=== PATIENT | female | born 1960 | race Asian ===

== ENCOUNTER 2021-05-19 11:41 | Emergency (ER) | payer OTHER ==
[~2021-05-19] VITALS: Ht 152.4 cm; Wt 69.1 kg
[2021-05-19] MEDS ORDERED: IV NORMAL SALINE 1000ML BAG 1,000 ML IV SCH (12:00)
[2021-05-19] MEDS ORDERED: IV NORMAL SALINE 1000ML BAG 1,000 ML IV ONE (12:15)
--- NOTE | 2021-05-19 12:18 | RAD ---
EXAM: Chest, single view. HISTORY: Chest pain. COMPARISON: None. FINDINGS: A frontal view of the chest is obtained. There is no infiltrate, pleural effusion or pneumo thorax. The heart is normal in size. IMPRESSION: No acute pulmonary finding. Electronically signed by: Rosita Farnsworth MD (05/19/2021 12:15 PM) [id number]
[2021-05-19 12:20] LABS: BARBITURATES NEG (NEG); BENZODIAZEPINES NEG (NEG); CANNABINOIDS NEG (NEG); COCAINE NEG (NEG); METHADONE NEG (NEG); OPIATES NEG (NEG); PHENCYCLIDINE NEG (NEG)
[2021-05-19 12:24] LABS: AMPHETAMINE/METHAMPHETAMINE NEG (NEG)
[2021-05-19 12:39] LABS: BASO % 0 % (0-3); EOS # 0.1 x10^3/uL (0.0-0.7); EOS % 1 % (0-3); HEMATOCRIT 41.2 % (36.0-47.0); LYMPH # 1.7 x10^3/uL (1.0-4.8); LYMPH % 23 % (24-48); MEAN CORPUSCULAR HEMOGLOBIN 30 pg (25-35); MEAN CORPUSCULAR HGB CONC 34 g/dL (31-37); MEAN CORPUSCULAR VOLUME 87 fL (79-100); MONO # 0.4 x10^3/uL (0.0-1.1); MONO % 5 % (0-9); NEUT # 5.5 x10^3/uL (1.8-7.7); NEUT % 71 % (31-73); PLATELET COUNT 290 x10^3/uL (140-400); RED BLOOD COUNT 4.73 x10^6/uL (3.50-5.40); RED CELL DISTRIBUTION WIDTH 13.1 % (11.5-14.5); WHITE BLOOD COUNT 7.7 x10^3/uL (4.0-11.0)
[2021-05-19 13:04] LABS: ALBUMIN 3.9 g/dL (3.4-5.0); ALBUMIN/GLOBULIN RATIO 1.1 (1.0-1.7); CREATININE 0.7 mg/dL (0.6-1.0); GFR 85.9; MAGNESIUM 2.1 mg/dL (1.8-2.4); TOTAL BILIRUBIN 0.4 mg/dL (0.2-1.0); TOTAL PROTEIN 7.6 g/dL (6.4-8.2)
--- NOTE | 2021-05-19 14:28 | RAD ---
PQRS Compliance Statement: One or more of the following individualized dose reduction techniques were utilized for this examinat ion: 1. Automated exposure control 2. Adjustment of the mA and/or kV according to patient size 3. Use of iterative reconstruction technique CT CERVICAL SPINE WO 05/19/2021 1:47 PM Indication: Left upper extremity paresthesias COMPARISON: None available. TECHNIQUE: Multiple axial CT images of the cervical spine were obtained without intravenous contrast. Coronal and sagittal reformats are provided. FINDINGS: There is reversal the normal cervical lordosis centered at C6-C7. Mild disc height loss at C5-C6 and C6-C7. Vertebral body heights are maintained. No acute fracture identified. C1 and C2 arches are inta ct. Atlantoaxial articulation is intact. Craniocervical junction is normal. Sagittal alignment is oth erwise intact. At C5-C6, there is a posterior disc osteophyte complex asymmetric to the left. Mild facet arthropathy . Moderate left and moderate uncovertebral joint disease. Moderate left and mild right neuroforaminal stenosis. Mild osseous spinal canal stenosis. At C6-C7, there is a posterior disc osteophyte complex. Mild facet arthropathy. Moderate severe left and moderate right uncovertebral joint disease. Moderate left and mild right neuroforaminal stenosis. No significant spinal canal stenosis. There is no prevertebral edema. No paraspinal soft tissue abnormality. Tonsilloliths are identified b ilaterally. Thyroid gland is normal in appearance. No suspicious pulmonary abnormality. IMPRESSION: Mild cervical spondylosis without acute fracture is detailed above. Electronically signed by: Rere Shin MD (05/19/2021 2:25 PM) [id number]
--- NOTE | 2021-05-19 15:26 | EKG ---
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
--- NOTE | 2021-05-19 15:31 | PHYS DOC ---
Past Medical History Additional Past Medical Histor: Seasonal allergies Past Surgical History: Other Additional Past Surgical Histo: Carpal tunnel bilaterally, trigger finger, and L ear drum repair Smoking Status: Never Smoker Alcohol Use: None General Adult EDM: Chief Complaint: MULTIPLE COMPLAINTS HPI: HPI: 58-year-old female past medical history of asthma, diabetes, and hyperlipidemia, presents to the ED with her , (patient consents to his/her/their knowledge and involvement in pts' medical care), bibems sent in from [facility], complaints of left hand tingling "all 5 fingers" and numbness from the left shoulder down that started around midnight last night. Patient states she was restless and did not get good sleep. Around 9:30 in the morning had associated lightheadedness, dizziness and shortness of breath after researching her sxs online. No change with 1000 mg of Tylenol at 2 AM. Has been vaccinated for Covid, no history of Covid infection. Father with history of CAD in his 70s. No personal or family history of AAA, AAD, CTD (eh[place] or marfans), cardiac arrhythmias (need for AICD), sudden or unexplainable (under 50 years of age or with exertion), or clotting disorders. Was given 4 baby aspirin by EMS and an albuterol breathing treatment in route. No history of tobacco use. States she has a history of chronic back pain and disc herniations. Denies any trauma to the head or neck. No associated weakness of the left upper extremity. Review of Systems: Review of Systems: Constitutional: Denies fever or chills. [] Eyes: Denies change in visual acuity. [] HENT: Denies nasal congestion or sore throat. [] Respiratory: Denies cough or hemoptysis Cardiovascular: Denies chest pressure/tightness/squeezing pain or edema. [] GI: Denies abdominal pain, nausea, vomiting, bloody stools or diarrhea. [] : Denies dysuria or vaginal bleeding Musculoskeletal: Denies back pain or joint pain. [] Integument: Denies rash or diaphoresis Neurologic: Denies headache or midline neck pain Endocrine: Denies polyuria or polydipsia. [] Lymphatic: Denies swollen glands. [] Psychiatric: Denies depression or anxiety. [] Heart Score: C/O Chest Pain: Yes HEART Score for Chest Pain: HEART Score for Chest Pain Response (Comments) Value History Slighlty/Non-Suspicious 0 ECG Normal 0 Age >45 - < 65 1 Risk Factors >3 Risk Factors or Hx CAD 2 Troponin < Normal Limit 0 Total 3 Risk Factors: Risk Factors: DM, Current or recent (<one month) smoker, HTN, HLP, family history of CAD, obesity. Risk Scores: Score 0 - 3: 2.5% MACE over next 6 weeks - Discharge Home Score 4 - 6: 20.3% MACE over next 6 weeks - Admit for Clinical Observation Score 7 - 10: 72.7% MACE over next 6 weeks - Early Invasive Strategies Current Medications: Current Medications Medications (Trade) Dose Ordered Sig/Valentín Start Time Stop Time Status Last Admin Dose Admin Sodium Chloride 1,000 ml @ 1,000 mls/hr 1X ONCE 05/19/21 12:15 05/19/21 13:14 DC 05/19/21 12:56 1,000 MLS/HR Allergies: Allergies: Allergies Coded Allergies Type Severity Reaction Last Updated Verified sulfamethoxazole Allergy Unknown Rash 05/19/21 Yes trimethoprim Allergy Unknown Rash 05/19/21 Yes Physical Exam: PE: Constitutional: Well developed, well nourished, no acute distress, non-toxic appearance. HENT: Normocephalic, atraumatic, Eyes: EOMI, conjunctiva normal, no discharge. Neck: Normal range of motion, supple, reports lateral left neck tenderness w/exam Cardiovascular: S1/2 present, regular rhythm Lungs & Thorax: Speaking in full sentences, bilateral equal chest rise, no tachypnea or increased work of breathing Abdomen: soft, no tenderness, Skin: Warm, dry, no erythema, no rash. [] Back: No midline spinal step-offs or tenderness, no CVA tenderness. [] Extremities: No tenderness, no cyanosis, no lower extremity edema, equal radial pulses, cap refill < 1 second, equal/5/5 upper extremity muscle strength bilaterally, radial/median/ulnar sensation intact Neurologic: Alert and oriented X 3, normal motor function, normal sensory function, no focal deficits noted. [] Psychologic: Affect normal, judgement normal, mood -slightly anxious/worried Current Patient Data: Labs: Laboratory Tests Test 05/19/21 11:50 05/19/21 12:30 05/19/21 14:10 Urine Opiates Screen Neg (NEG) Urine Methadone Screen Neg (NEG) Urine Barbiturates Neg (NEG) Urine Phencyclidine Screen Neg (NEG) Urine Amphetamine/Methamphetamine Neg (NEG) Urine Benzodiazepines Screen Neg (NEG) Urine Cocaine Screen Neg (NEG) Urine Cannabinoids Screen Neg (NEG) Urine Ethyl Alcohol Neg (NEG) White Blood Count 7.7 x10^3/uL (4.0-11.0) Red Blood Count 4.73 x10^6/uL (3.50-5.40) Hemoglobin 14.0 g/dL (12.0-15.5) Hematocrit 41.2 % (36.0-47.0) Mean Corpuscular Volume 87 fL (79-100) Mean Corpuscular Hemoglobin 30 pg (25-35) Mean Corpuscular Hemoglobin Concent 34 g/dL (31-37) Red Cell Distribution Width 13.1 % (11.5-14.5) Platelet Count 290 x10^3/uL (140-400) Neutrophils (%) (Auto) 71 % (31-73) Lymphocytes (%) (Auto) 23 % (24-48) L Monocytes (%) (Auto) 5 % (0-9) Eosinophils (%) (Auto) 1 % (0-3) Basophils (%) (Auto) 0 % (0-3) Neutrophils # (Auto) 5.5 x10^3/uL (1.8-7.7) Lymphocytes # (Auto) 1.7 x10^3/uL (1.0-4.8) Monocytes # (Auto) 0.4 x10^3/uL (0.0-1.1) Eosinophils # (Auto) 0.1 x10^3/uL (0.0-0.7) Basophils # (Auto) 0.0 x10^3/uL (0.0-0.2) Sodium Level 138 mmol/L (136-145) Potassium Level 4.0 mmol/L (3.5-5.1) Chloride Level 99 mmol/L (98-107) Carbon Dioxide Level 28 mmol/L (21-32) Anion Gap 11 (6-14) Blood Urea Nitrogen 10 mg/dL (7-20) Creatinine 0.7 mg/dL (0.6-1.0) Estimated GFR (Cockcroft-Gault) 85.9 BUN/Creatinine Ratio 14 (6-20) Glucose Level 176 mg/dL (70-99) H Calcium Level 9.0 mg/dL (8.5-10.1) Magnesium Level 2.1 mg/dL (1.8-2.4) Total Bilirubin 0.4 mg/dL (0.2-1.0) Aspartate Amino Transferase (AST) 30 U/L (15-37) Alanine Aminotransferase (ALT) 35 U/L (14-59) Alkaline Phosphatase 91 U/L (46-116) Troponin I High Sensitivity < 4 ng/L (4-50) L < 4 ng/L (4-50) L UU-Drw-H-Type Natriuretic Peptide 44 pg/mL (0-124) Total Protein 7.6 g/dL (6.4-8.2) Albumin 3.9 g/dL (3.4-5.0) Albumin/Globulin Ratio 1.1 (1.0-1.7) Lipase 289 U/L (73-393) Laboratory Tests 05/19/21 12:30 Laboratory Tests 05/19/21 12:30 Vital Signs: Vital Signs Date Time Temp Pulse Resp B/P (MAP) Pulse Ox O2 Delivery O2 Flow Rate FiO2 05/19/21 14:43 76 18 138/65 (89) 97 Room Air 05/19/21 11:42 98.1 98.1 EKG: EKG: Sinus rhythm 80 bpm, no axis deviation, normal intervals, no T wave inversion, no ST elevation or ST depression-no change from EKG at 1056 performed at [facility] Radiology/Procedures: Radiology/Procedures: IMAGING REPORT Signed PATIENT: LUZMARIA SIGALA ACCOUNT: [id number] : 1960 LOCATION: ER AGE: 60 SEX: F EXAM STATUS: REG ER ORD. PHYSICIAN: OLIVER WOOD DO REASON: left ue parethesias PROCEDURE: CT CERVICAL SPINE WO CONTRAST PQRS Compliance Statement: One or more of the following individualized dose reduction techniques were utilized for this examination: 1. Automated exposure control 2. Adjustment of the mA and/or kV according to patient size 3. Use of iterative reconstruction technique CT CERVICAL SPINE WO 05/19/2021 1:47 PM Indication: Left upper extremity paresthesias COMPARISON: None available. TECHNIQUE: Multiple axial CT images of the cervical spine were obtained without intravenous contrast. Coronal and sagittal reformats are provided. FINDINGS: There is reversal the normal cervical lordosis centered at C6-C7. Mild disc height loss at C5-C6 and C6-C7. Vertebral body heights are maintained. No acute fracture identified. C1 and C2 arches are intact. Atlantoaxial articulation is intact. Craniocervical junction is normal. Sagittal alignment is otherwise intact. At C5-C6, there is a posterior disc osteophyte complex asymmetric to the left. Mild facet arthropathy. Moderate left and moderate uncovertebral joint disease. Moderate left and mild right neuroforaminal stenosis. Mild osseous spinal canal stenosis. At C6-C7, there is a posterior disc osteophyte complex. Mild facet arthropathy. Moderate severe left and moderate right uncovertebral joint disease. Moderate left and mild right neuroforaminal stenosis. No significant spinal canal stenosis. There is no prevertebral edema. No paraspinal soft tissue abnormality. Tonsilloliths are identified bilaterally. Thyroid gland is normal in appearance. No suspicious pulmonary abnormality. IMPRESSION: Mild cervical spondylosis without acute fracture is detailed above. Electronically signed by: Bernadette Conde MD (05/19/2021 2:25 PM) [id number] DICTATED and SIGNED BY: BERNADETTE CONDE MD DATE: 05/19/21 [id number] 0 IMAGING REPORT Signed PATIENT: LUZMARIA SIGALA ACCOUNT: [id number] : 1960 LOCATION: ER AGE: 60 SEX: F EXAM STATUS: PRE ER ORD. PHYSICIAN: OLIVER WOOD DO REASON: barbara PROCEDURE: PORTABLE CHEST 1V EXAM: Chest, single view. HISTORY: Chest pain. COMPARISON: None. FINDINGS: A frontal view of the chest is obtained. There is no infiltrate, pleural effusion or pneumothorax. The heart is normal in size. IMPRESSION: No acute pulmonary finding. Electronically signed by: Rosita Reed MD (05/19/2021 12:15 PM) [id number] DICTATED and SIGNED BY: ROSITA REED MD DATE: 05/19/21 [id number] 0 Course & Med Decision Making: Course & Med Decision Making Pertinent Labs and Imaging studies reviewed. (See chart for details) Concern for left hand paresthesias and left upper extremity numbness. On reevaluation patient states her symptoms have resolved. Patient with unremarkable skin and neurovascular exam. Reports history 3 carpel tunnel surgeries in left wrist and 2 in her right wrist, is right-hand dominant. Will discharge home with strict ED return precautions were given for recurrent symptoms, chest pain or neurologic deficits. Encouraged urgent outpatient follow-up with PMD and cardiology for nonemergent evaluation of coronary artery disease due to her family history. Life-threatening processes were considered but are low suspicion at this time, given history, physical exam and ED workup. Pt was educated on all prescription medications and adverse effects. All patient's questions were answered and pt was stable at time of discharge. Life/limb-threatening differential includes but is not limited to, trauma (fracture, dislocation, laceration, compartment syndrome, tendon or ligament injury), neurovascular injury or deficitcva/tia, infection (osteomyelitis, abscess, cellulitis, septic arthritis, necrotizing fasciitis), deep vein thrombosis, renal/cardiac/liver disease, medication adverse effect, lymphedema/anasarca, vascular insufficiency or malignancy, I have spoken with the patient and/or caregivers. I explained the patient's condition, diagnoses and treatment plan based on the information available to me at this time. I have answered the patient and/or caregiver's questions and addressed any concerns. The patient and/or caregivers have a good understanding of patient's diagnosis, condition and treatment plan as can be expected at this point. Vital signs have been stable. Patient's condition is stable and appropriate for discharge from the emergency department. Patient will pursue further outpatient evaluation with primary care physician or other designated or consulting physician as outlined in the discharge instructions. The patient and/or caregivers are agreeable to this plan of care and follow-up instructions have been explained in detail. The patient and/or caregivers have received these instructions in written form and have expressed an understanding of the discharge instructions. The patient and/or caregivers are aware that any significant change of condition or worsening of symptoms should prompt immediate return to this or the closest emergency department or call to 911. Pavel Disclaimer: Pavel Disclaimer: This electronic medical record was generated, in whole or in part, using a voice recognition dictation system. Departure Departure Impression: Primary Impression: Paresthesias in left hand Additional Impression: Numbness and tingling of left upper extremity Disposition: HOME / SELF CARE / HOMELESS Condition: STABLE Referrals: UNKNOWN PCP NAME (PCP) Follow-up with your primary care physician in 24 to 48 hours OR FOLLOW UP WITH FAMILY MEDICINE: [address] [place] [address] Patient Instructions: Pain, Neuropathic, Paresthesia Additional Instructions: FOLLOW UP WITH CARDIOLOGY: FOR DEFINITIVE MANAGEMENT of coronary artery disease [facility] [address] [place] [address] EMERGENCY DEPARTMENT GENERAL DISCHARGE INSTRUCTIONS Thank you for coming to [facility] Emergency Department (ED) today and trusting us with you care. We trust that you had a positive experience in our Emergency Department. If you wish to speak to the department management, you may call the Director at [phone]. YOUR FOLLOW UP INSTRUCTIONS ARE FOLLOWS: 1. Do you have a private Doctor? If you do not have a private doctor, please ask for a resource list of physicians or clinics that may be able to assist you with follow up care. 2. The Emergency Physicain has interpreted your x-rays. The X-Ray specialist will also review them. If there is a change in the findings, you will be notified in 48 hours when at all possible. 3. A lab test or culture has been done, your results will be reviewed and you will be notified if you need a change in treatment. ADDITIONAL INSTRUCTIONS AND INFORMATION: 1. Your care today has been supervised by a physician who is specially trained in emergency care. Many problems require more than one evaluation for a complete diagnosis and treatment. We recommend that you schedule your follow up appointment as recommended to ensure complete treatment of you illness or injury. If you are unable to obtain follow up care and continue to have a problem, or if your condition worsens, we recommend that you return to the ED. 2. We are not able to safely determine your condition over the phone nor are we able to give sound medical advice over the phone. For these safety reasons, if you call for medical advice we will ask you to come to the ED for further evaluation. 3. If you have any questions regarding these discharge instructions please call the ED at [phone]. SAFETY INFORMATION: In the interest of safety, wellness, and injury prevention; we encourage you to wear your sealbelt, if you smoke; quite smoking, and we encourage family to use a protective helmet for bicycling and other sporting events that present an increased risk for head injury. IF YOUR SYMPTOMS WORSEN OR NEW SYMPTOMS DEVELOP, OR YOU HAVE CONCERNS ABOUT YOUR CONDITION; OR IF YOUR CONDITION WORSENS WHILE YOU ARE WAITING FOR YOUR FOLLOW UP APPOINTMENT; EITHER CONTACT YOUR PRIMARY CARE DOCTOR, THE PHYSICIAN WHOSE NAME AND NUMBER YOU WERE GIVEN, OR RETURN TO THE ED IMMEDIATELY. [facility]USOLIVER DO May 19, 2021 15:31
[2021-05-19 17:13] VITALS: BP 134/90
== END 2021-05-19 17:50 | disposition home or self-care (01) ==
LOC: ER 11:41
DX: R20.2 Paresthesia of skin (principal); R42 Dizziness and giddiness; R06.02 Shortness of breath; J45.909 Unspecified asthma, uncomplicated; E11.9 Type 2 diabetes mellitus without complications; E78.5 Hyperlipidemia, unspecified; G89.29 Other chronic pain; Z88.2 Allergy status to sulfonamides; Z88.1 Allergy status to other antibiotic agents
CPT/HCPCS: 36415; 71045; 72125; 80053; 80307; 83690; 83735; 83880; 84484; 85025; 85379; 93005; 96360; 96361; 99285; J7030